=== PATIENT | male | born 1930 | race Caucasian/White ===

== ENCOUNTER 2017-05-09 06:27 | Day surgery (SDC) | payer MEDICARE ==
[~2017-05-09] VITALS: Ht 182.9 cm; Wt 91.6 kg
[~2017-05-09 06:27] MED LIST: ACIPHEX20 MG PO; ASPIRIN EC81 MG PO; BENAZEPRIL HCL20 MG PO; BIAXIN500 MG PO; FLUTICASONE PRO16 GM NS; HYDROCHLOROTH12.5 MG PO; LOTENSIN20 MG PO; VITAMIN C500 M1 PO; ZANTAC150 MG PO
[2017-05-09] MEDS ORDERED: METOPROLOL SUCC25 MG PO (06:53)
--- NOTE | 2017-05-09 08:16 | NUR ---
05/09/17 0816 Camryn Owen 0811 PT ARRIVED IN PACU AWAKE WITH NO C/O'S. ABD SOFT.
--- NOTE | 2017-05-10 09:20 | OR ---
[facility] [address], [place] [address] Signed DATE OF OPERATION: 05/09/2017 SURGEON: Tammie Lopez MD PREOPERATIVE DIAGNOSIS: History of colon polyps in 2014. POSTOPERATIVE DIAGNOSES: 1. Sigmoid diverticulosis. 2. Polyp of distal ascending colon. PROCEDURE: Total colonoscopy to cecum with cold morcellation polypectomy x1. ANESTHESIA: Intravenous sedation, fentanyl 100 mcg, Versed 4 mg. INDICATIONS: An 86-year-old white man, a patient of Dr. King, known to me from the past. Underwent colonoscopy in 2014, where he was noted to have 3 adenomatous polyps. They were all excised. He was recommended to have colonoscopy the following year, but declined. He agrees to colonoscopy at this time for surveillance. He understands risks of bleeding, infection, perforation related to colonoscopy and wished to proceed. FINDINGS: The prep was good. Complete colonoscopy was undertaken to the cecum. There were numerous diverticula of the sigmoid and left colon. There was 1 small polyp of the distal ascending colon, which was excised with cold morcellation technique. There were no other findings of concern. DESCRIPTION OF PROCEDURE: The patient was brought to the endoscopy suite and placed in lateral decubitus position, given intravenous sedation to the point of slurred speech and nystagmus. Digital rectal examination was normal. An Olympus video colonoscope was passed in the rectum and manipulated throughout the colon. Numerous diverticula were seen in the sigmoid and left colon. The scope was ultimately advanced to the cecum. Ileocecal valve was visualized and the cecum irrigated. Biopsies were taken of the cecum as there appeared to be mild chronic inflammation though was not particularly pathologic in appearance otherwise. The scope Electronically Signed By: TAMMIE LOPEZ MD 05/10/17 0920 PATIENT NAME: PUSHPA PORRAS OPERATIVE REPORT DATE OF : 32 REPORT #: [id number] PHYSICIAN: TAMMIE LOPEZ MD PCP: ZACK KING DO REPORT IS CONFIDENTIAL AND NOT TO BE RELEASED WITHOUT AUTHORIZATION [facility] [address] [place] [id number] Signed was withdrawn and in the distal ascending colon, a small sessile polyp was noted. This had the impression of possible residual polyp. This was excised with cold morcellation technique. Further withdrawal of scope showed no other abnormalities of concern. Retroflexed view in the rectum was normal except for some hypertrophied anal papilla. The scope was removed and the patient was taken to the recovery room in good condition. CONCLUSION DIAGNOSIS: 1. Small polyp right colon excised. 2. Diverticulosis sigmoid. 3. Hypertrophied anal papilla. PLAN: Recommend repeat colonoscopy in 3 years if clinically appropriate given his advanced age at that time, sooner if clinically indicated. He will return to the ongoing care of Dr. King. MD JORGE Hua/CONRAD /[id number] cc: Zack King DO Copies: ZCAK KING DO ~ Electronically Signed By: TAMMIE LOPEZ MD 05/10/17 0920 PATIENT NAME: CHIQUITAPUSHPA Dena OPERATIVE REPORT DATE OF : 31 REPORT #: [id number] PHYSICIAN: TAMMIE LOPEZ MD PCP: ZACK KING DO REPORT IS CONFIDENTIAL AND NOT TO BE RELEASED WITHOUT AUTHORIZATION
== END 2017-05-09 08:40 | disposition home or self-care (01) ==
LOC: OPS 06:27 → DS 06:27 → OPS 06:45 → DS 06:45 → OPS 08:40
PROVIDERS: Surgery
PROC: 0DBH8ZX Excision of Cecum, Via Natural or Artificial Opening Endoscopic, Diagnostic (ICD-10-PCS; 2017-05-09)
PROC: 0DBK8ZX Excision of Ascending Colon, Via Natural or Artificial Opening Endoscopic, Diagnostic (ICD-10-PCS; principal; 2017-05-09 06:45)
DX: Z12.11 Encounter for screening for malignant neoplasm of colon (principal); D12.2 Benign neoplasm of ascending colon; K63.5 Polyp of colon; K57.30 Diverticulosis of large intestine without perforation or abscess without bleeding; K64.4 Residual hemorrhoidal skin tags; D64.9 Anemia, unspecified; I10 Essential (primary) hypertension; Z88.8 Allergy status to other drugs, medicaments and biological substances; Z96.652 Presence of left artificial knee joint; Z98.890 Other specified postprocedural states; Z90.89 Acquired absence of other organs; Z90.49 Acquired absence of other specified parts of digestive tract; Z86.010 Personal history of colon polyps; Z87.19 Personal history of other diseases of the digestive system
CPT/HCPCS: 88305; 99153; G0500; J0690; J2250; J3010; J7120

== ENCOUNTER 2017-10-01 06:14 | Emergency (ER) | payer MEDICARE ==
[~2017-10-01] VITALS: Ht 182.9 cm; Wt 89.8 kg
[~2017-10-01 06:14] MED LIST changes: +METOPROLOL SUCC25 MG PO
[2017-10-01] MEDS ORDERED: METOPROLOL SUCC25 MG PO (06:35)
[2017-10-01] MEDS ORDERED: HYDRALAZINE HCL10 MG (06:36)
--- NOTE | 2017-10-01 06:53 | EKG ---
[facility] [address] [facility] [place] [address] Signed Sinus rhythm with sinus arrhythmia with occasional premature ventricular complexes Nonspecific ST abnormality Abnormal ECG No previous ECGs available Confirmed by LUIS MIX MD ([id number]) on 10/01/2017 6:53:24 AM Electronically Signed By: LUIS MIX MD 10/01/17 0653 PATIENT NAME: PUSHPA PORRAS Electrocardiogram DATE OF : 32 PHYSICIAN: LUIS MIX MD REPORT #: [id number] REPORT IS CONFIDENTIAL AND NOT TO BE RELEASED WITHOUT AUTHORIZATION
[2017-10-01] MEDS ORDERED: XARELTO20 MG PO (10:46)
== END 2017-10-01 11:05 | disposition home or self-care (01) ==
LOC: ED 06:14 → EDBD 06:16 → ED 11:05
DX: R55 Syncope and collapse (principal); I48.91 Unspecified atrial fibrillation; E87.6 Hypokalemia; E87.1 Hypo-osmolality and hyponatremia; G89.18 Other acute postprocedural pain; M25.561 Pain in right knee; Z96.651 Presence of right artificial knee joint; Z88.8 Allergy status to other drugs, medicaments and biological substances; Z79.899 Other long term (current) drug therapy
CPT/HCPCS: 71045; 80053; 81001; 85025; 93005; 93010; 96361; 96374; 99285; J3480; J7030

== ENCOUNTER 2021-02-10 09:23 | Inpatient (IN) | payer MEDICARE ==
[~2021-02-10] VITALS: Ht 182.9 cm; Wt 88.6 kg
[~2021-02-10 09:23] MED LIST changes: +ASPIRIN81 MG PO; +CIALIS5 MG PO; +CIPRO500 MG PO; +HYDRALAZINE HCL10 MG; +LOSARTAN POTASS50 MG PO; +SINGULAIR10 MG PO; +XARELTO20 MG PO
[2021-02-10] MEDS ORDERED: MOBIC7.5 MG PO (14:18)
--- NOTE | 2021-02-10 14:37 | NUR ---
REPORT RECIEVED FROM DALLAS GUARDADO RN.
--- NOTE | 2021-02-10 15:00 | NUR ---
THIS RN RECEIVED REPORT FROM ALVARO WYMAN.
--- NOTE | 2021-02-10 15:10 | NUR ---
PT ARRIVED VIA STRETCHER. PT STATES THAT HE HAS NO PAIN FROM HIS FALL AT THIS TIME. PT ABLE TO STAND AND TRANSFER FROM STRETCHER TO BED. THIS RN WAS DOING INTAKE ALISIA- TASHIA FROM PHYSICAL THERAPY IN ROOM TO ASSESS PT. ORTHOSTATICS COMPLETED.
[2021-02-10] MEDS ORDERED: [UNRECOGNIZED DRUG - OTHER] PO (18:14)
--- NOTE | 2021-02-10 18:15 | NUR ---
MED REC COMPLETED
--- NOTE | 2021-02-10 19:30 | NUR ---
IN TO SEE PT. PT ALERT AND AWAKE. DENIES PAIN. UPDATED ON PLAN OF CARE. NO NEEDS OR REQUESTS. CALL LIGHT IN REACH.
--- NOTE | 2021-02-10 21:08 | NUR ---
Pt called, sba out of bed, fww to bathroom. Slightly unsteady, told this RN how he was suppose to do things, such as getting out of bed, and back into bed. Required some cueing, voided. Urine dark brie. Back to bed, warm washcloth for face given. Able to put legs into bed independently. All personal supplies within reach. Educated electronic data processing auditor light, and room lights, struggles with pushing the small buttons. No other needs at this time.
--- NOTE | 2021-02-10 22:05 | NUR ---
IN TO CHECK ON PT, ASSESSMENT DUE. PT ALERT AND ORIENTED X 3. DENIES PAIN. DENIES NAUSEA, VOMITING OR DIARHHEA. DRESSING TO LEFT ELBOW AREA C/D/I. PT ANSWERING QUESTIONS APPROPIATELY. I AND O'S COMPLETED, VS COMPLETED. NO OTHER NEEDS OR REAUESTS AT THIS TIME. IV FLUIDS INFUSING ORDERED. IV FLUSING WELL, NO S/SX OF PHELIBITIS OR INFILTRATION NOTED. CALL LIGHT IN REACH.
--- NOTE | 2021-02-10 23:39 | NUR ---
IN TO CHEK ON PT, PT SLEEPIN WITH EYES CLOSED AND HOB ELEVATED. RR 16. NO SIGNS OF PAIN NOTED. CALL LIGHT IN REACH.
--- NOTE | 2021-02-11 01:09 | NUR ---
ASSUMED CARE OF PATIENT. PATIENT IS RESTING IN BED WITH EYES CLSOED, RR 15. CALL LIGHT IN REACH. IV INFUSING PER ORDER. BED ALARM ON FOR SAFETY.
--- NOTE | 2021-02-11 02:00 | NUR ---
1 PA TO THE BATHROOM USING WALKER. PATIENT IS A LITTLE SLOW PACE AND SHAKY. PATIENT WASHED HIS FACE AND HANDS. PATIENT IS BACK IN BED. V/S AND OUTPUT TAKEN AND RECORDED. CALL LIGHT WITHIN REACH.
--- NOTE | 2021-02-11 02:37 | NUR ---
PATIENT IS UP TO BR WITH SCOTT STORM. PATIENT WAS ABLE TO VOID. PATIENT IS BACK IN BED RESTING. PATIENTS VITALS TAKEN AND RECORDED BY RESEARCH DIRECTOR. PATIENT DENIES ANY NEEDS. CALL LIGHT IN REACH. BED ALARM ON FOR SAFETY. RESEARCH DIRECTOR REMAINS IN THE ROOM. IV INFUSING PER ORDER.
--- NOTE | 2021-02-11 04:14 | NUR ---
PATIENT IS RESTING IN BED WITH EYES CLSOED, RR 15. CALL LIGHT IN REACH.
--- NOTE | 2021-02-11 04:32 | EKG ---
[facility] [address] [facility] [place] [address] Signed Sinus rhythm with occasional premature ventricular complexes and premature atrial complexes Otherwise normal ECG No previous ECGs available Confirmed by LUIS MIX MD ([id number]) on 02/11/2021 4:31:44 AM Electronically Signed By: LUIS MIX MD 02/11/21 0432 PATIENT NAME: PUSHPA PORRAS WILLIAM Electrocardiogram DATE OF : 32 PHYSICIAN: LUIS MIX MD REPORT #: [id number] REPORT IS CONFIDENTIAL AND NOT TO BE RELEASED WITHOUT AUTHORIZATION
--- NOTE | 2021-02-11 06:26 | NUR ---
PATIENT ASSISTED TO THE RECLINER. PATIENTS VITALS TAKEN AND RECORDED. INTAKE AND OUTPUT RECORDED. IV INFUSING PER ORDER. PATIENT DENIES ANY PAIN OR NAUSEA. PATIENT DENIES ANY NEEDS. CALL LIGHT IN REACH.
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
--- NOTE | 2021-02-11 07:45 | NUR ---
awake, in chair, on room air, clear lungs, irregular heart , denies CP, abd soft maximiliano. wears attend. scabbed areas L parietal top and mid of head. bruising over arms, L elbow, allevyn L elbow. scabbed over and bruised areas both LE L mre than R. [place], IVF infusing RFA. DBP 180's. answers appropriately. will notify , pt states he has not been getting his bp home meds. pleasant and talkative, aware of date, place and situation. coop with assessment.
--- NOTE | 2021-02-11 08:10 | NUR ---
PT WAS ALREADY UP IN THE CHAIR. WHITEBOARD IS UPDATED. CALL LIGHT IS WITHIN REACH. NO FURTHER NEEDS AT THIS TIME.
--- NOTE | 2021-02-11 08:34 | NUR ---
update given to pts brother Chad at [phone] who called for pts updates. update given. no further questions
--- NOTE | 2021-02-11 11:01 | NUR ---
in chair, resting, eyes closed, worked with PT, unsteady, bed and fall alarm
--- NOTE | 2021-02-11 12:03 | NUR ---
In chair, pt teachaing on am meds done, pt concerned about his bp med and other meds he takes at home, semireceptive. Dr Smith notified at 1105 of DBP 180's and no other sx, no orders at that time. chair alarm on. tolerating fluids well, no emesis
--- NOTE | 2021-02-11 13:30 | NUR ---
PT IN CHAIR, LEGS ELEVATED, TOLERATING DIET AND FLUIDS, NO EMESIS. NO C/O PAIN CALL LIGHT AND FLUIDS AT HANDS REACH.VISITING WITH SON IN LAW, CM TALKED TO SON IN LAW AND PT R/T DC OPTIONS AND CONCERNS
--- NOTE | 2021-02-11 14:00 | NUR ---
Long conversation with patient and his brother in law. Pt denies any history of falls at home. He lives in a 1 stoyr home with 2 steps. Steps have rails. Pt states he has system inplace where 3 neighbors call and check on him, if they call and he doesn't answer they come to his home. This is how he was found when he fell yesterday. He would like a walker does not have DME in the home. He states he has 3 nieces in town and they all check on him. He does not want placement and we discussed [facility] and [facility] which could help him with an aid. Pt declines this. I suggested he buy a Life alert and he is in agreement with this. Informed there are apple watches and different devices on [employer]. He will have his family assist him with this. I then asked if I can call he daughter and initially he states no. Brother in law encourages him and he then agrees. Pts plan is home with minimal assist from family.
--- NOTE | 2021-02-11 14:25 | NUR ---
PATIENT AMBULATED TO BATHROOM TO VOID WITH FWW AND STANDBY ASSIST. PATIENT ALSO AMBULATED ENTIRE LOOP IN HALLWAY.
--- NOTE | 2021-02-11 14:41 | NUR ---
in chair, pleasntly confused, walked earlier with charge nurse, tolerated well., watching tv
--- NOTE | 2021-02-11 17:04 | NUR ---
Up in chair, awake, watching tv, room air, no c/o pain, legs elevated, tolerating liquids and diet well, no c/o pain. Healing bruisies and scabbed over areas
--- NOTE | 2021-02-11 17:20 | NUR ---
Called and spoke with pt's daughter, Suzan. Updated and she states brother El will be here tomorrow and she will be here next week. They are very concerned for him to stay home alone and has dementia that worsens towards the end of the day. Pt goes to bed at 7 at night and has had falls at home. Discussed with daughter, its good family is coming as pt needs help. He is not ready to accept assisted living or caregivers in the home. I cannot force this on the pt, I can only offer. Suzan states her brother, El is leaving [facility] tomorrow and will be here the following day.
--- NOTE | 2021-02-11 19:27 | NUR ---
Dr Smith notified of 1800 bp of and 9 bp of 187. ' yes Toney aware thats why i restarted his bp med", no other orders at this time. pt asymptomatic, up in chair
--- NOTE | 2021-02-11 20:05 | NUR ---
RECEIVED REPORT FROM DAY SHIFT RN. PATIENT IS RESTING IN BED WATCHING TV. PATIENT DENIES ANY NEEDS. CALL LIGHT IN REACH. BED ALARM ON FOR SAFETY.
--- NOTE | 2021-02-11 20:45 | NUR ---
IN TO GET VITALS I&Os, PT WAS ASSISTED TO THE TOILET TO VOID, BACK TO BED, NO FURTHER NEEDS AT THIS TIME, ICE WATER FILLED
--- NOTE | 2021-02-11 22:20 | NUR ---
PT CALL LIGHT ON, CAN'T FIND GLASSES OR CHAPSTICK, PT NOW FEELS LIKE HE NEEDS TO VOID, UP TO THE TOILET, 200MLS, BACK TO BED, NO FURTHER NEEDS
--- NOTE | 2021-02-11 22:22 | NUR ---
ASSESMENT COMPLETED. PATIENT DENIES ANY PAIN. IV INFUSING PER ORDER. PATIENT IS RESTING IN BED. PATIENT PROVIDED WITH FRESH WATER AND WARM BLANKET. NO NEEDS NOTED. CALL LIGHT IN REACH. BED ALARM ON FOR SAFETY.
--- NOTE | 2021-02-11 22:55 | NUR ---
PT IS UP TO THE TOILET TO VOID, 300MLS, BACK TO BED
--- NOTE | 2021-02-11 23:46 | NUR ---
PATIENT IS RESTING IN BED WITH EYES CLOSED, RR 17. CALL LIGHT IN REACH AND BED ALARM ON FOR SAFETY.
--- NOTE | 2021-02-12 00:45 | NUR ---
PATIENTS IV INFUSING PER ORDER. PATIENT HAS RETURNED TO BED AFTER UP TO BR WITH TRACK REPAIR WORKER. PATIENT DENIES ANY NEEDS. CALL LIGHT IN REACH. BED ALARM ON FOR SAFETY.
--- NOTE | 2021-02-12 01:35 | NUR ---
PATIENT ASSISTED TO THE RESTROOM A SBA W/FWW. PATIENT WAS ABLE TO VOID. PATIENT IS BACK IN BED RESTING. BED ALARM ON FOR SAFETY. CALL LIGHT IN REACH.
--- NOTE | 2021-02-12 03:30 | NUR ---
PATIENT ASSISTED TO THE RESTROOM A 1PA W/FWW. PATIENT WAS ABLE TO VOID. PATIENT IS BACK IN BED RESTING. IV INFUSING PER ORDER. PATIENT DENIES ANY NEEDS. CALL LIGHT IN REACH. BED ALARM ON FOR SAFETY.
--- NOTE | 2021-02-12 05:03 | NUR ---
PATIENT ASSISTED TO THE BR A 1PA W/FWW. PATIENT WAS ABLE TO VOID. PATIENT IS BACK IN BED RESTING. VITALS TAKEN AND RECORDED. INTAKE AND OUTPUT RECORDED. PATIENTS FRESH ICE WATER PROVIDED. NO NEEDS NOTED. CALL LIGHT IN REACH. BED AALRM ON FOR SAFETY.
--- NOTE | 2021-02-12 05:48 | NUR ---
CALL LIGHT ANSWERED, pt 1PA WITH FWW TO BATHROOM TO VOID. pt SLOW MOVING, BUT STEADY ON FEET. NO FURTHER NEEDS, CALL LIGHT IN REACH AND BED ALARM RESUMED.
--- NOTE | 2021-02-12 07:15 | NUR ---
report recieved from fast food shift lead rn, pt resting in recliner, call light within reach, room air, denies any needs at the moment
--- NOTE | 2021-02-12 08:16 | NUR ---
PT IN CHAIR. VISITOR IN ROOM. PT ACCEPTED WARM WASHCLOTH. CALL LIGHT WITHIN REACH, NO FURTHER NEEDS AT THIS TIME.
--- NOTE | 2021-02-12 08:26 | NUR ---
rn in room to do morning assessment and give meds, pt sitting in the chair eating breakfast visiting with niece, denies any pain at the moment.
--- NOTE | 2021-02-12 11:49 | NUR ---
rn in room to round on pt, sitting in recliner wacthing tv denies any needs at the moment.
--- NOTE | 2021-02-12 13:11 | NUR ---
PT JUST GOT BACK FROM WALKING THE HALLS. PT NOW IN CHAIR WATCHING TV. CALL LIGHT WITHIN REACH, NO FURTHER NEEDS AT THIS TIME.
--- NOTE | 2021-02-12 13:13 | NUR ---
RN assisted pt to the bath room and ambulate in halls able to make two rounds around the unit, sitting in the recliner denies any other needs at the moment
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
--- NOTE | 2021-02-12 16:56 | NUR ---
RN IN ROOM TO ROUND ON PT OFFERED TO SHOWER, PT REFUSED STATES HE WILL DO IT WHEN HE GOES HOME, [employer] PROVIDED
--- NOTE | 2021-02-12 17:24 | NUR ---
PT FINISHING ICE CREAM WHILE WATCHING TV IN CHAIR. CALL LIGHT WITHIN REACH, NO FURTHER NEEDS AT THIS TIME.
--- NOTE | 2021-02-12 17:47 | NUR ---
rn in room rounding on pt denies any needs, rr even and not in any pain, sitting in recliner
--- NOTE | 2021-02-12 18:20 | NUR ---
rn assisted pt to the bathroom and back to bed, pt used walker needs ques on using walker properly I&Os updated call light within reach no other needs at the [facility]
--- NOTE | 2021-02-12 19:34 | NUR ---
BEDSIDE REPORT FROM JOHANN WATSON RN, PT RESTING IN BED ALERT, NO DISTRESS NOTED, HE VERBALIZED NO NEEDS AT THIS TIME.
--- NOTE | 2021-02-12 20:27 | NUR ---
PT CALLED FOR ASSISTANCE TO RESTROOM. SBA WITH FWW, PT IS NOW BACK IN BED AND DENIES FURTHER NEEDS. BED ALARM IS ON AND CALL LIGHT IS CLOSE.
--- NOTE | 2021-02-12 21:45 | NUR ---
PT CALLS TO USE BR. 1P, SBA, FWW TO BR AND BACK TO BED. NO OTHER NEEDS. CALL LIGHT IN REACH.
--- NOTE | 2021-02-12 22:06 | NUR ---
PT RESTING IN BED ALERT AT THIS TIME.
--- NOTE | 2021-02-12 22:29 | NUR ---
CALLED WITH B/P HIGH 194/91 AT THIS, SHE GAVE ORDER FOR 10MG PO HYDRALAZINE ONE TIME DOSE.
--- NOTE | 2021-02-12 22:31 | NUR ---
PT UP TO BATHROOM ONE PERSON ASSIST, TOLERATED ACTIVITY WELL. VOIDING QUANTITY SUFFICIENT CLEAR YELLOW URINE NO ODOR NOTED.
--- NOTE | 2021-02-12 22:58 | NUR ---
PT UP TO BATHROOM TO VOID, HE SAID HE NEEDS TO SIT DOWN FOR BM, HE HAD LARGE BM FORMED, VOIDED 250ML CLEAR YELLOW URINE. NO OTHER CONCERNS OR REQUESTS AT THIS TIME.
--- NOTE | 2021-02-12 23:51 | NUR ---
PT UP TO BR, SBA FWW, BACK TO BED. NO OTHER NEEDS. CALL LIGHT IN REACH.
--- NOTE | 2021-02-13 00:28 | NUR ---
PT CALLED NURSES STATION TO REQUEST ASSISTANCE TO THE BATHROOM, ONE PERSON STANDBY ASSIST WITH FWW, VOIDED 100ML CLEAR YELLOW URINE. PT BACK TO BED, CALL LIGHT IN REACH, BED ALARM ON FOR PT SAFETY.
--- NOTE | 2021-02-13 01:10 | NUR ---
PT CALLED NURSES STATION TO REQUEST ASSISTANCE TO THE BATHROOM. PT UP ONE PERSON ASSIST WITH FWW TO BATHROOM, VOIDED 150ML CLEAR YELLOW URINE. CALL LIGHT IN REACH.
--- NOTE | 2021-02-13 01:46 | NUR ---
PT UP TO BEDSIDE, HE DECIDED TO TRY USING THE URINAL, HE VOIDED 100ML OF CLEAR YELLOW URINE.
--- NOTE | 2021-02-13 02:33 | NUR ---
PT CALLED FOR ASSISTANCE TO BATHROOM, ONE PERSON ASSIST WITH FWW, STEADY GAIT, VOIDED 125ML CLEAR YELLOW URINE. PT BACK TO BED, NO FURTHER CONCERNS OR NEEDS.
--- NOTE | 2021-02-13 04:22 | NUR ---
CALLED IN REGARDS TO PT B/P 187/88, GAVE ONE TIME ORDER FOR HYDRALAZINE 10MG PO.
--- NOTE | 2021-02-13 05:07 | NUR ---
pt up to bathroom to void one person fww standby assist. steady gait. tolerated activity well.
--- NOTE | 2021-02-13 05:08 | NUR ---
PT HAS BEEN FREQUENTLY TO VOID THROUGHOUT THE SHIFT, HE HAS NOT SLEPT OVER SHIFT. HE REPORTS NO PAIN OR NAUSEA. BM X2. B/P ELEVATED TO X2 OVER SHIFT FOR ONE TIME 10 MG PO HYDRALAZINE EACH TIME.
--- NOTE | 2021-02-13 07:15 | NUR ---
report recieved from night coordinator rn, pt resting in the recliner, iv fluids @ 75, anxious to go go home, call light within reach denies any needs at the moment
--- NOTE | 2021-02-13 08:52 | NUR ---
rn in room do morning assessment and do morning meds, pt denies any pain at the moment bp elevated 196/60 Dr Smith aware, metoprolol 25mg and losortan given.
--- NOTE | 2021-02-13 09:53 | NUR ---
SPOKE WITH [facility] REGARDING DELIVERY OF WALKER. PATT RECVD VIA FAX AND SIGNED BY DR. MIX. FAX SENT BACK TO [facility]. WILL CONTACT [facility] FOR UPDATE ON DELIVERY.
--- NOTE | 2021-02-13 10:30 | NUR ---
THIS RN INTO ROOM PATIENT HAS QUESTIONS REGARDING DISCHARGE. PATIENT WANTING UP DATE ON WALKER, ADVISED WALKER SHOULD BE DELIVERED SOON. DR. MIX AT THE BEDSIDE TO ASSESS PATIENT.
--- NOTE | 2021-02-13 10:59 | NUR ---
Pt SBA w/FWW to BR, pt voided urine now back in chair sitting up safely w/ call light in reach. VSS on RA, pt denies any further needs at this time.
--- NOTE | 2021-02-13 11:18 | NUR ---
rn in room to place new dressing on L elbow skin tear, wound cleaned with wound cleanser, dried off with 4x4, and new allvyn placed.
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
--- NOTE | 2021-02-13 11:57 | NUR ---
PT SITTING IN CHAIR, USING HIS PHONE. HE WAS RATHER OCCUPIED, MENTIONED HE IS TO DC LATER TODAY. GAVE BLESSING WILL FOLLOW NEEDED
--- NOTE | 2021-02-13 13:06 | NUR ---
rn in room to help pt to the bath room assisted pt with sink care and quentin care, helped put on tshirt and told pt we will help pt get dressed and go over discharge paper work his son wont be able to be here until later in the afternoon
--- NOTE | 2021-02-13 13:59 | NUR ---
Patient is sitting in the chair. Call light is in reach. Patient refused lunch.
--- NOTE | 2021-02-13 14:45 | NUR ---
Rn made aware by tech that pt bp 187/92. dr barreto notified. no new orders
--- NOTE | 2021-02-13 15:19 | NUR ---
rn in room to answer pt call light, one of the pt scabs on his shins started to bleed non adhierent gauze appled and cleansed with wound cleaner wall, pt denies any pain, is anxiously waiting for son to get here assured him we have everything ready for him and once El arrives he will be ok to go. no other needs at the moment
--- NOTE | 2021-02-16 16:09 | NUR ---
ASKED BY INPATIENT DISHCARKARAN TO CALL DAUGHTER SHE HAD LEFT ANOTHER MESSAGE REGARDING NEEDS AT HOME. HOME HEALTH ENDED UP BEING ORDERED, BUT THE PAPERWORK WAS NOT COMPLETE AND SHE IS CONCERNED ON HOW TO GET THIS DONE. CALLED [facility] AND SPOKE WITH ANUPAMA. SHE STATES THAT YES, THE FACE TO FACE WAS NOT COMPLETE. SHE STATES SHE TRIED TO TELL DAUGHTER THAT THEY PROBABLY WOULD NOT BE ABLE THIS WEEK DUE TO STAFFING AND HOLIDAY. SHE ALSO SAID DAUGHTER KEPT AT HER ABOUT HE WILL BE ALONE AND HE NEEDS THEM TO CALL HIM AND SEE HIM. SHE DISCUSSED THAT THEY ONLY COME IN FOR ABOUT AN HOUR A COUPLE TIMES A WEEK. THEY DO NOT PROVIDE CARE IN THE HOME. DAUGHTER SAID HE HAD A APPOINTMENT TUESDAY WITH PCP AND ANUPAMA TOLD HER THAT WAS PERFECT, DR DOYLE CAN SIGN THE FACE TO FACE AND THEY WILL GET HIM SET UP FOR THE FOLLOWING WEEK. CALLED AYSE AT [phone]. SHE STATES THE DISCHARGING DOCTOR NEEDS TO SIGN THE PAPER TODAY SO HOME HEALTH CAN COME IN TOMORROW. DISCUSSED THAT DR MIX IS NOT ON SERVICE AND THE FACE TO FACE HAS TO BE WITH THE DR THAT ACTUALLY SAW THE PATIENT IN PERSON WHEN SHE ASKED FOR THE NEW DOCTOR TO SIGN. DISCUSSED THAT DR DOYLE CAN SIGN TUESDAY AND THEN IT CAN BE SET UP. SHE WANTED DR MIX TO BE NOTIFIED AND SEND IN A SIGNED PAPER FROM HOME. EXPLAINED THEY DO NOT DO THAT. AGAIN DISCUSSED THAT CHANCES WERE HE WOULD NOT HAVE BEEN SEEN THIS WEEK ANYWAY DUE TO THE HOLIDAY. SHE THEN STATES FOR US TO CALL AND CHECK ON HIM OR SEND SOMEONE TO CHECK ON HIM HER BROTHER LEFT AN HOUR AGO TO GO BACK TO [place] AND PATIENT HAD ALREADY CALLED A JESSICA. SHE STATES HE HAS NOT USED WALKER SENT HOME WITH HIM SINCE DISCHARGE WHEN ASKED ABOUT THAT. ALSO ASKED IF THEY LOOKED INTO LIFE [employer]ERT WHICH WAS DISCUSSED HERE BY SCRAP YARD WORKER. SHE STATES THAT HE IS BEING STUBBORN. WENT OVER WITH HER THAT WE CANNOT FORCE HIM TO DO ANYTHING. THAT I CAN PUT IN A CHW REFERRAL TO THE CLINIC AND THEY COULD TRY TO TOUCH BASIS WITH HIM, BUT I DO NOT KNOW THEIR SCHEDULE THIS WEEK. EXPLAINED WHAT THEY ACTUALLY DO WHEN SHE WANTED THEM TO GO SIT WITH HIM. DISCUSSED THAT MAYBE OVER TIME SOMEONE CAN BUILD A RELATIONSHIP WITH HIM TO ENCOURAGE HIM TO ACCEPT HELP AT HOME BUT ONLY IF HE WANTS TO PARTICIPATE. ENCOURAGED THEM TO KEEP HAVING NEIGHBORS AND NEICES CHECK ON HIM IN THE MEANTIME. SHE WAS VERY INSISTENT "IF HE HAD HOME HEALTH THIS WEEK LIKE HE WAS SUPPOSED TOO, THINGS WOULD HAVE GONE MUCH BETTER". DISCUSSED I WILL PUT THE CHW REFERRAL IN AND SEE IF THEY CAN CHECK WITH HIM AT LEAST BY PHONE. REFERRAL GIVEN TO [facility] FOR OUR CASE MANAGEMENT FOR HER TO CHECK WITH CLINIC GROUP AND IF THEY CANNOT CALL HIM, MAYBE SHE CAN THIS WEEK.
--- NOTE | 2021-02-19 16:08 | NUR ---
DAUGHTER AYSE HAD CALLED CASE MANAGEMENT OFFICE SEVERAL TIMES WITH SEVERAL COMPLAINTS REGARDING HER DAD. THESE WERE ON MESSAGES. TRIED TO CALL HER BACK TWICE EARLIER TODAY, LEFT MESSAGES. CALLED HER AGAIN AND WAS ABLE TO SPEAK WITH HER ON PHONE. SHE WAS SPEAKING VERY RAPDILY AND WAS SAYING HER DAD SAW DR DOYLE TODAY AND SHE UNDID EVERYTHING WE HAD PUT IN PLACE AT DISCHARGE. WHEN PRESSED IT WAS SHE ORDERED OUTPATIENT THERAPY INSTEAD OF HOME HEALTH. SHE ALSO STATES HER DAD SPRAINED HIS ANKLE AND SHE THOUGHT THE HOSPITAL MISSED THAT. THEN STATED HER BROTHER SAYS PATIENT DID NOT HAVE THAT WHEN HE LEFT HIM AT HOME. SHE STATES SHE THINKS HE ROLLED IT, OR FELL. WHEN ASKED WHAT HER DAD SAYS SHE SAID "HE LIED". I ASKED IF DR DOYLE SAW IT AND SHE SAID SHE DID AND THAT IS HOW THEY KNOW IT IS SPRAINED. WHEN ASKED IF HE IS WALKING ON IT, SHE SAID YES. I SUGGESTED HE USE HIS WALKER WE SENT HIM HOME WITH IF HE NEEDS IT AND SHE STATES HE WON'T USE IT. WHEN I FINALLY GOT TO SPEAK I DISCUSSED THAT PATIENT IS DISCHARGED AND KADEN AND I DO INPATIENT AND ED CASE MANAGEMENT. DR DOYLE HAS TAKEN OVER AND IF SHE HAS PROBLEMS SHE WILL NEED TO CALL THEM GOING FORWARD. DISCUSSED THAT OUR CHW HAD SPOKEN WITH HER DAD AND HE SEEMED TO THINK HE WAS FINE AT HOME. HE DID NOT WANT ANY HELP AND WAS ABLE TO LIST ALL HIS PLANS ON WHO TO CALL IF NEEDED. SHE REFERRED HIM TO THE CLINIC CHW PROGRAM TO BEGIN FOLLOWING HIM. SHE KEPT SAYING "I KNOW I KNOW" BUT THEN WOULD GO ON SOME MORE. I GENTLY EXPLAINED THAT IT IS VERY FRUSTRATING TO DEAL WITH PARENTS BUT HE HAS THE RIGHT TO DO HE WANTS. HER DOGS STARTED BARKING AND SHE SAID SHE HAD TO GO AND SAID "I WILL CALL YOU GUYS TUESDAY" AND HUNG UP.
== END 2021-02-13 17:26 | disposition home or self-care (01) | DRG 557 ==
LOC: ED 09:23 → MS 13:42
PROVIDERS: ADMIT Student in an Organized Health Care Education/Training Program; ATTEND Student in an Organized Health Care Education/Training Program
DX: M62.82 Rhabdomyolysis (principal); G93.41 Metabolic encephalopathy; N17.9 Acute kidney failure, unspecified; Z20.822 Contact with and (suspected) exposure to COVID-19; S09.90XA Unspecified injury of head, initial encounter; I48.91 Unspecified atrial fibrillation; I10 Essential (primary) hypertension; N40.0 Benign prostatic hyperplasia without lower urinary tract symptoms; Z88.8 Allergy status to other drugs, medicaments and biological substances; Z88.6 Allergy status to analgesic agent; Z79.899 Other long term (current) drug therapy; Z79.82 Long term (current) use of aspirin; W18.30XA Fall on same level, unspecified, initial encounter
CPT/HCPCS: 70450; 72125; 80048; 80053; 81001; 82553; 83735; 85025; 93005; 93010; 97110; 97112; 97116; 97161; 97166; 97530; 97535; 99285-25; C9803; J1650; J7121; U0003